=== PATIENT | female | born 1960 | race African-American/Black ===

== ENCOUNTER 2019-12-21 11:20 | Observation (INO) ==
[2019-12-21 13:00] LABS: Basophils # 0.1 10*3/uL (0.0-0.2); Basophils % 1.4 % (0.0-0.8); Eosinophils # 0.1 10*3/uL (0.0-0.87); Eosinophils % 1.7 % (0.00-10.9); Hematocrit 42.2 VOL% (35.7-47.0); Hemoglobin 14.5 GM/DL (12.0-16.0); Immature Granulocytes % 0.3 %; Immature Granulocytes Absolute 0.01 #; Lymphocytes # 1.6 10*3/uL (1.4-4.0); Lymphocytes % 44.8 % (21.3-54.2); Mean Corpuscular HGB Conc 34.4 GM/DL (32-36); Mean Corpuscular Volume 95.3 FL (87-102); Monocytes % 11.8 % (1.7-12.7); NRBC # 0.02 10*3/uL; Platelet Count 158 T/CUMM (130-400); Red Blood Count 4.43 MC/CUMM (3.8-5.5); Red Cell Distribution Width 14.5 % (9.3-17.3); White Blood Count 3.5 T/CUMM (4-12)
[2019-12-21 13:28] LABS: Albumin 3.9 G/DL (3.4-5.0); Bilirubin,Total 2.1 MG/DL (0.2-1.0); Calcium 9.6 MG/DL (8.5-10.1); Osmolality,Calculated 263.2 MOS/KG (273-304)
[2019-12-21] MEDS ORDERED: SODIUM CHLORIDE 0.9% 1,000 ML IV STA (13:42)
[2019-12-21] MEDS ORDERED: PANTOPRAZOLE 40 MG VIAL IV STA (13:42)
[2019-12-21] MEDS ORDERED: ONDANSETRON 4 MG/2 ML VIAL IV STA (13:42)
[2019-12-21] MEDS ORDERED: METOCLOPRAMIDE 10 MG/2 ML VIAL IV STA (13:42)
[2019-12-21 14:01] LABS: Blood, Urine Negative (Negative); Glucose,Urine (UA) Negative (Negative); Hyaline Casts,Urine 71 /LPF (0-3); Ketones,Urine 5 mg/dL (Negative); Mucus,Urine Moderate /LPF (Occasional); Nitrite,Urine Negative (Negative); Protein,Urine 100 MG/DL; RBC,Urine 11 /HPF (0-4); Squamous Epithelial Cell,Urine Occasional /HPF (0-10); Urine Appearance CLOUDY (Clear); Urine Color Amber (Yellow); Urine Specific Gravity 1.023 (1.001-1.035); WBC,Urine 77 /HPF (0-6)
[2019-12-21 14:02] LABS: Bilirubin,Urine Small mg/dL (Negative)
[2019-12-21] MEDS ORDERED: cefTRIAXone 1,000 MG in SODIUM CHLORIDE 0.9% 100 ML IV STA (14:24)
[2019-12-21] MEDS ORDERED: cefTRIAXone 1,000 MG VIAL ONE (15:10)
[2019-12-21] MEDS ORDERED: DOCUSATE SODIUM 100 MG CAPSULE PO PRN (15:15)
[2019-12-21] MEDS ORDERED: DEXTROSE 50% 25 GM/50 ML VIAL IV PRN ×2 (15:15→15:18)
[2019-12-21] MEDS ORDERED: ONDANSETRON 4 MG/2 ML VIAL IV PRN (15:15)
[2019-12-21] MEDS ORDERED: GLUCAGON 1 MG VIAL IM PRN (15:15)
[2019-12-21] MEDS ORDERED: SODIUM CHLORIDE 0.9% 1,000 ML IV SCH (15:30)
[2019-12-21] MEDS ORDERED: LORazepam 1 MG TABLET PO PRN (16:07)
[2019-12-21] MEDS ORDERED: MAGNESIUM SULF RIDER 4 GM in PREMIX 1 EACH IV PRN (16:36)
[2019-12-21] MEDS ORDERED: MAGNESIUM SULF RIDER 2 GM in PREMIX 1 EACH IV PRN (16:36)
[2019-12-21] MEDS ORDERED: MORPHINE 4 MG/1 ML VIAL IV PRN (16:36)
[2019-12-21] MEDS: SODIUM CHLORIDE 0.9% 1,000 ML IV SCH (17:58)
[2019-12-21 19:32] LABS: Barbiturates Screen,Urine Negative (Negative); Benzodiazepines Screen,Urine Negative (Negative); Cannabinoid Screen,Urine Negative (Negative); Opiate Screen,Urine Negative (Negative); Phencyclidine Screen,Urine Negative (Negative)
[2019-12-21] MEDS ORDERED: ENOXAPARIN 30 MG/0.3 ML SYRINGE SUBCUT SCH (21:00)
[2019-12-21] MEDS: chlordiazePOXIDE 25 MG CAPSULE PO SCH (21:04)
[2019-12-21] MEDS: PANTOPRAZOLE 40 MG VIAL IV SCH (21:04)
[2019-12-22] MEDS: SODIUM CHLORIDE 0.9% 1,000 ML IV SCH ×2 (02:15→09:19)
[2019-12-22] MEDS: chlordiazePOXIDE 25 MG CAPSULE PO SCH (05:24)
[2019-12-22 05:56] LABS: Basophils # 0.1 10*3/uL (0.0-0.2); Basophils % 1.7 % (0.0-0.8); Eosinophils # 0.1 10*3/uL (0.0-0.87); Eosinophils % 3.6 % (0.00-10.9); Hematocrit 38.4 VOL% (35.7-47.0); Hemoglobin 12.9 GM/DL (12.0-16.0); Immature Granulocytes % 0.3 %; Immature Granulocytes Absolute 0.01 #; Lymphocytes # 1.9 10*3/uL (1.4-4.0); Lymphocytes % 61.3 % (21.3-54.2); Mean Corpuscular HGB Conc 33.6 GM/DL (32-36); Mean Corpuscular Volume 95.5 FL (87-102); Mean Platelet Volume 12.3 FL (9.6-12.0); Monocytes % 8.6 % (1.7-12.7); Neutrophils % 24.5 % (38.7-73.9); Platelet Count 103 T/CUMM (130-400); Red Blood Count 4.02 MC/CUMM (3.8-5.5); Red Cell Distribution Width 14.5 % (9.3-17.3)
[2019-12-22 06:19] LABS: Atypical Lymphocytes Few; Eosinophils 2 % (0-10); Hypochromasia 1+; Lymphocytes 69 % (20-55); Nucleated Red Blood Cells 1 (0-5); Platelet Estimate Decreased; Segmented Neutrophils 23 % (50-85); Total Cells Counted 100
[2019-12-22 06:22] LABS: Albumin 3.2 G/DL (3.4-5.0); Bilirubin,Total 1.4 MG/DL (0.2-1.0); Calcium 8.7 MG/DL (8.5-10.1); Osmolality,Calculated 278.7 MOS/KG (273-304); Total Protein 6.6 G/DL (6.4-8.3)
[2019-12-22 06:31] LABS: % Iron Saturation 96.1 % (18-50); Calcium 8.9 MG/DL (8.5-10.1); Osmolality,Calculated 278.7 MOS/KG (273-304); Risk Ratio 11.13; Thyroid Stimulating Hormone 3.88 uIU/ml (0.358-3.74)
[2019-12-22 07:08] LABS: Folate > 24.0 NG/ML (5.4-24.0); HIV Antigen/Antibody Result Nonreactive (Nonreactive); Hepatitis B Core IgM Quant 0.11 Index; Hepatitis B Surface Ag Quant < 0.10 Index; Hepatitis B Surface Ag Result Negative (Negative); Hepatitis C Virus Ab Quant 0.02 Index; Hepatitis C Virus Ab Result Negative (Negative); Vitamin B12 > 2000 PG/ML (211-911)
[2019-12-22 07:37] LABS: Free T4 (Free Thyroxine) 0.96 NG/DL (0.76-1.46)
[2019-12-22] MEDS: PANTOPRAZOLE 40 MG VIAL IV SCH (08:47)
[2019-12-22] MEDS ORDERED: COENZYME Q10 100 MG CAPSULE PO SCH (09:00)
[2019-12-22] MEDS ORDERED: OMEGA 3 ACID ETHYL ESTERS 1 GM CAPSULE PO SCH (09:00)
[2019-12-22] MEDS ORDERED: PANTOPRAZOLE 40 MG VIAL IV SCH (09:00)
[2019-12-22] MEDS ORDERED: FOLIC ACID 1 MG TABLET PO SCH (09:00)
[2019-12-22] MEDS ORDERED: THIAMINE 200 MG/2 ML VIAL IV SCH (09:00)
[2019-12-22] MEDS ORDERED: MULTIVITAMIN (CENTRUM) TABLET PO SCH (09:00)
[2019-12-22] MEDS ORDERED: cefTRIAXone 1,000 MG in SYRINGE 1 EACH IV SCH (11:00)
[2019-12-22 12:01] VITALS: BP 113/57
[2019-12-22] MEDS ORDERED: gemfibroziL 600 MG TABLET PO SCH ×2 (16:30)
[2019-12-22] MEDS ORDERED: ENOXAPARIN 40 MG/0.4 ML SYRINGE SUBCUT SCH (21:00)
== END 2019-12-22 13:34 | disposition home or self-care (01) ==
LOC: N.EDINP 11:20 → N.ED 11:20 → N.5E 17:39
PROVIDERS: ADMIT Hospitalist; ATTEND Hospitalist